=== PATIENT | female | born 2000 | race Caucasian/White ===

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

== ENCOUNTER → 2020-02-04 | Outpatient (REF) | payer OTHER | LOC: M LAB REF 07:26 | PROVIDERS: ATTEND Family Medicine | DX: R10.2 Pelvic and perineal pain (principal) ==

== ENCOUNTER → 2020-02-17 | Outpatient (REF) | payer OTHER ==
[2020-02-17 20:45] LABS: CHLAMYDIA DNA AMPLIFICATION NEGATIVE (NEGATIVE); GC DNA AMPLIFICATION NEGATIVE (NEGATIVE)
== END ==
LOC: M LAB REF 17:06
PROVIDERS: ATTEND Family Medicine
DX: R10.2 Pelvic and perineal pain (principal)

== ENCOUNTER → 2020-12-27 | Outpatient (REF) | payer OTHER | LOC: M LAB REF 17:19 | PROVIDERS: ATTEND Physician Assistant | DX: J02.9 Acute pharyngitis, unspecified (principal) ==

== ENCOUNTER → 2021-10-03 | Outpatient (CLI) | payer OTHER ==
[2021-10-03 13:28] LABS: BASO % 0.2 % (0.0-1.0); HEMATOCRIT 42.7 % (36.0-47.0); HEMOGLOBIN 14.4 g/dl (12.0-15.5); LYMPH # 1.6 10^3/uL (1.5-5.0); LYMPH % 36.2 % (24.0-44.0); MEAN CORPUSCULAR HEMOGLOBIN 29.6 pg (27.0-33.0); MEAN CORPUSCULAR HGB CONC 33.7 g/dl (32.0-36.5); MEAN CORPUSCULAR VOLUME 87.7 fl (80.0-96.0); MONO # 0.4 10^3/uL (0.0-0.8); MONO % 8.9 % (2.0-8.0); NEUTROPHILS # 2.4 10^3/uL (1.5-8.5); NEUTROPHILS % 54.5 % (36.0-66.0); PLATELET COUNT, AUTOMATED 307 10^3/uL (150-450); RED BLOOD COUNT 4.87 10^6/uL (4.00-5.40); WHITE BLOOD COUNT 4.5 10^3/uL (4.0-10.0)
[2021-10-03 14:04] LABS: ALT/SGPT 18 U/L (12-78); BILIRUBIN,TOTAL 0.5 MG/DL (0.2-1.0); BLOOD UREA NITROGEN 11 MG/DL (7-18); CALCIUM LEVEL 9.4 MG/DL (8.5-10.1); CARBON DIOXIDE LEVEL 28 MEQ/L (21-32); CHLORIDE LEVEL 105 MEQ/L (98-107); CREATININE FOR GFR 0.76 MG/DL (0.55-1.30); FERRITIN 10 NG/ML (8-252); FOLATE 11.3 NG/ML; FREE T4 0.77 NG/DL (0.76-1.46); GLOMERULAR FILTRATION RATE > 60.0 (>60); GLUCOSE, FASTING 84 MG/DL (70-100); IRON (FE) 68 UG/DL (50-170); PERCENT SATURATION 19.4 % (13.2-45.0); POTASSIUM SERUM 4.1 MEQ/L (3.5-5.1); SODIUM LEVEL 138 MEQ/L (136-145); TOTAL 25(OH) VITAMIN D 11.7 NG/ML (30.0-100.0); TOTAL IRON BINDING CAPACITY 351 UG/DL (250-450); TOTAL PROTEIN 7.2 GM/DL (6.4-8.2); VITAMIN B12 LEVEL 285 PG/ML
== END ==
LOC: M PLALAB 11:26
PROVIDERS: ATTEND Nurse Practitioner Adult Health
DX: R53.83 Other fatigue (principal)

== ENCOUNTER → 2021-10-12 | Outpatient (CLI) | payer OTHER ==
[2021-10-12 10:54] LABS: TOTAL 25(OH) VITAMIN D 13.4 NG/ML (30.0-100.0)
== END ==
LOC: M PLALAB 08:29
PROVIDERS: ATTEND Nurse Practitioner Adult Health
DX: E59 Dietary selenium deficiency (principal); D51.9 Vitamin B12 deficiency anemia, unspecified

== ENCOUNTER → 2022-01-17 | Outpatient (CLI) | payer OTHER ==
[2022-01-17 12:56] LABS: TOTAL 25(OH) VITAMIN D 22.2 NG/ML (30.0-100.0)
== END ==
LOC: M ADAMS 10:38
PROVIDERS: ATTEND Nurse Practitioner Adult Health
DX: D51.9 Vitamin B12 deficiency anemia, unspecified (principal); E55.9 Vitamin D deficiency, unspecified

== ENCOUNTER → 2022-01-17 | Outpatient (CLI) | payer OTHER ==
[2022-01-17 12:48] LABS: CHOLESTEROL RISK RATIO 3.46 (<5)
== END ==
LOC: M ADAMS 11:05
PROVIDERS: ATTEND Family Medicine
DX: Z13.220 Encounter for screening for lipoid disorders (principal)

== ENCOUNTER 2023-10-12 07:37 | Emergency (ER) | payer OTHER ==
[~2023-10-12] VITALS: Ht 167.6 cm; Wt 84.1 kg
[2023-10-12 07:49] VITALS: TEMP 97.1
[2023-10-12] MEDS: KETOROLAC 60MG 2ML VIAL IM ONE (08:10)
[2023-10-12] MEDS: ACETAMINOPHEN TAB 650MG DOSE (2X325MG) PO ONE (08:10)
[2023-10-12] MEDS ORDERED: MEDR4PAK PO (09:45)
[2023-10-12] MEDS ORDERED: NAPR-837 PO (09:45)
[2023-10-12] MEDS ORDERED: METH-1165 PO (09:45)
[2023-10-12] MEDS: traMADol 50 MG TAB PO ONE (10:03)
[2023-10-12] MEDS: LIDOCAINE 5% (LIDODERM) PATCH TD ONE (10:03)
[2023-10-12 10:05] VITALS: BP 140/78; O2SAT 99
[2023-10-13] MEDS ORDERED: TRAM50TA2 PO (10:37)
== END 2023-10-12 10:30 | disposition home or self-care (01) ==
LOC: EDBD 07:37 → M ED 07:37
DX: M54.32 Sciatica, left side (principal); M54.50 Low back pain, unspecified; Z88.2 Allergy status to sulfonamides; Z88.8 Allergy status to other drugs, medicaments and biological substances; Z79.899 Other long term (current) drug therapy
CPT/HCPCS: 96372; 99284; J1885

== ENCOUNTER 2023-10-13 05:26 | Emergency (ER) | payer OTHER ==
[~2023-10-13] VITALS: Ht 167.6 cm; Wt 84.1 kg
[~2023-10-13 05:26] MED LIST: MEDR4PAK PO; METH-1165 PO; NAPR-837 PO
[2023-10-13] MEDS: ACETAMINOPHEN TAB 650MG DOSE (2X325MG) PO ONE (09:40)
[2023-10-13] MEDS: traMADol 50 MG TAB PO ONE (09:40)
[2023-10-13] MEDS ORDERED: TRAM50TA2 PO (10:37)
[2023-10-13 10:43] VITALS: BP 141/94; TEMP 98.8; O2SAT 100
== END 2023-10-13 10:52 | disposition home or self-care (01) ==
LOC: M ED 05:26
DX: M54.32 Sciatica, left side (principal); M54.50 Low back pain, unspecified; Z88.2 Allergy status to sulfonamides; Z88.8 Allergy status to other drugs, medicaments and biological substances; Z79.899 Other long term (current) drug therapy